=== PATIENT | male | born 1965 | race African-American/Black ===

== ENCOUNTER 2016-09-24 11:33 | Emergency (ER) | payer SELFPAY ==
[~2016-09-24] VITALS: Ht 175.3 cm; Wt 80.0 kg
[2016-09-24] MEDS ORDERED: [UNRECOGNIZED DRUG - OTHER] (11:36)
[2016-09-24 13:23] VITALS: BP 140/73
== END 2016-09-24 13:24 | disposition home or self-care (01) ==
LOC: EEVIPCON 11:36 → EMS 11:36
DX: T75.4XXA Electrocution, initial encounter (principal); W86.8XXA Exposure to other electric current, initial encounter
CPT/HCPCS: 99281